=== PATIENT | female | born 1960 | race Caucasian/White ===

== ENCOUNTER 2019-10-07 22:33 | Emergency (ER) | payer OTHER, SELFPAY ==
--- NOTE | ~2019-10-07 | XR_ITS ---
EXAMINATION: XR foot LT min 3V DATE: 10/07/2019 22:51 INDICATION: Left foot pain TECHNIQUE: Dorsoplantar, lateral, and 2 oblique views of the left foot were obtained. COMPARISON: None. FINDINGS: There is a thin linear osseous density projecting lateral to the calcaneus. Mild osteoarthr itis is noted at the first metatarsophalangeal joint. The soft tissues are unremarkable. IMPRESSION: 1. Possible avulsion injury of the lateral aspect of the calcaneus. Reviewed, dictated and finalized at location A.
--- NOTE | ~2019-10-07 | XR_ITS ---
EXAMINATION: XR ankle LT min 3V DATE: 10/07/2019 22:51 INDICATION: Left foot pain TECHNIQUE: Anteroposterior, lateral, mortise, and additional oblique view of the ankle were obtained. COMPARISON: None. FINDINGS: There is a thin linear osseous density projecting lateral to the calcaneus. Bone alignment at the ankle is normal. The soft tissues are unremarkable. IMPRESSION: 1. Possible avulsion injury at the lateral aspect of the calcaneus. Reviewed, dictated and finalized at location A.
[2019-10-07 22:38] VITALS: BP 139/46; PULSE 91; RESP 19; TEMP 36.4; O2SAT 100
--- NOTE | 2019-10-07 22:38 | ED.LOWEXIN ---
HPI - Extremity Injury (Lower) General Chief Complaint: Extremity Injury, Lower Stated Complaint: L ankle pain Time Seen by Provider: 10/07/19 22:37 History of Present Illness HPI Narrative: Pain to the left foot and ankle. Pain began after she slipped and fell down a few stairs landing on top of her left foot. She has pain throughout the midfoot and ankle bilaterally. She has noted mild swelling and decreased ROM through the toes. No wound. No previous injury. Related Data Allergies Allergy/AdvReac Type Severity Reaction Status Date / Time Penicillins Allergy Verified 02/10/12 17:46 Review of Systems Review of Systems: All systems reviewed & are unremarkable except as noted in HPI and below Neurologic: Denies numbness and Reports weakness PMFSH Social History Social History Gender identity (if verbalized by the patient): Female Exam Const: General: healthy appearing, no acute distress and alert Orientation/consciousness: patient oriented x3 HENMT: Head: normal to inspection Resp: Effort & Inspection: normal respiratory effort Cardio: Other: 2+ left DP and PT pulses Skin: General skin exam: normal color Wounds: no wounds Neuro: General: patient oriented x3 and moves all extremities Other: Limited toe flexion, appears to be pain related as she has good strength to resist Extrem: Other: Mild swelling through midfoot Course Vital Signs Vital signs: Vital Signs Temperature 36.4 C 10/07/19 22:38 Pulse Rate 91 10/07/19 22:38 Respiratory Rate 19 10/07/19 22:38 Blood Pressure 139/46 L 10/07/19 22:38 Pulse Oximetry 100 10/07/19 22:38 Temperature 36.4 C 10/07/19 22:38 Pulse Rate 91 10/07/19 22:38 Respiratory Rate 19 10/07/19 22:38 Blood Pressure 139/46 L 10/07/19 22:38 Pulse Oximetry 100 10/07/19 22:38 MDM - Extremity Injury (Lower) MDM Narrative Medical decision making narrative: Possible avulsion of calcaneus on x-ray. I will apply splint and have her follow-up with ortho. Discharge Plan Discharge Clinical Impression: Avulsion fracture of calcaneus Qualifiers: Encounter type: initial encounter Calcaneus location: tuberosity Fracture type: closed Fracture alignment: nondisplaced Laterality: left Qualified Code(s): S92.035A - Nondisplaced avulsion fracture of tuberosity of left calcaneus, initial encounter for closed fracture Patient Disposition: Home, Self-Care Condition: Stable Instructions: Crutch Instructions (ED), Foot Fracture in Adults (ED) Prescriptions: New hydrocodone-acetaminophen [[place]] 5-325 mg tablet 1 tablet PO Q6H PRN (Reason: pain) Qty: 10 RF: 0 Follow-up/Referrals: Basil Bo MD [Physician] - 3 Days PHYSICIAN NOT ON STAFF,NONSTAFF [Primary Care Provider] - Discharge Date/Time: 10/07/19 23:57
== END 2019-10-07 23:57 | disposition home or self-care (01) ==
PROVIDERS: Emergency Provider Emergency Medicine
DX: S92.035A Nondisplaced avulsion fracture of tuberosity of left calcaneus, initial encounter for closed fracture (principal); W10.9XXA Fall (on) (from) unspecified stairs and steps, initial encounter
CPT/HCPCS: 29515; 73610; 73630; 99284; A9270

== ENCOUNTER 2020-04-03 11:39 | Emergency (ER) | payer OTHER, SELFPAY ==
--- NOTE | ~2020-04-03 | XR_ITS ---
EXAMINATION: XR shoulder RT min 2V, XR humerus RT EXAM DATE: 04/03/2020 12:32 (accession [id number]), 04/03/2020 12:31 (accession [id number]) INDICATION: Fell backwards, down stairs on 03/30/2020. Limited range of motion shoulder and right hum eral pain. Initial encounter. TECHNIQUE: The following right shoulder projections obtained: frontal projection with internal rotati on, frontal projection with external rotation, Grashey, and scapular Y view (4+ views). Orthogonal pr ojections right humerus. There are no prior studies for comparison. Comparison is made to prior exami nation from 03/25/2016. FINDINGS: There is acute closed posttraumatic essentially nondisplaced fracture of the right humeral head greater tuberosity. This finding has been indicated, marked on the examination for review, clini leann correlation. . No dislocation. Humeral shaft unremarkable. IMPRESSION: Acute essentially nondisplaced right greater tuberosity fracture. Reviewed, dictated and finalized at location A. CTOR OF APPLICATION DEVELOPMENT IMPRESSION: Acute essentially nondisplaced right greater tuberosity fracture.
[2020-04-03 11:52] VITALS: BP 128/59; PULSE 75; RESP 14; TEMP 36.8; O2SAT 97
--- NOTE | 2020-04-03 12:08 | ED.GENADULT ---
HPI - General Adult General Chief complaint: Extremity Injury, Upper Stated complaint: right arm injury Time Seen by Provider: 04/03/20 12:08 Source: patient Mode of arrival: ambulatory Limitations: no limitations History of Present Illness HPI narrative: 59-year-old female patient presents to the [facility] with complaints of right upper arm pain for the past 4 days. Patient states that she slipped down her stairs while holding the rail with her right hand about 4 days ago and states that when she fell her right arm pulled and twisted and ended up behind her. Patient states that she noticed some bruising to the right upper arm and has not been able to use the right upper arm without extreme pain. Patient states she has been taking Advil for her pain. Patient states at times she does feel what she describes as shock down the lower arm and hand. Related Data Home Medications Medication Instructions Recorded Confirmed acetaminophen 325 mg capsule 325 mg PO Q6H PRN 10/12/19 04/03/20 naproxen sodium 220 mg capsule 220 mg PO Q8H 10/12/19 04/03/20 Allergies Allergy/AdvReac Type Severity Reaction Status Date / Time Penicillins Allergy Unknown Swelling Verified 10/12/19 11:12 of Lip/Tongue/Throat Review of Systems Review of Systems: Narrative: CONSTITUTIONAL: Denies fever, chills, or sweats. EYES: Denies visual changes, redness, or discharge. ENT: Denies rhinorrhea, congestion, sore throat, or otalgia. CARDIOVASCULAR: Denies chest pain, palpitations, or edema. RESPIRATORY: Denies cough or dyspnea. GASTROINTESTINAL: Denies abdominal pain, nausea, vomiting, or diarrhea. GENITOURINARY: Denies dysuria or hematuria. SKIN: Denies rash or itching. MUSCULOSKELETAL: Denies back pain, joint pain, or myalgia. Positive right upper arm pain x4 days NEUROLOGIC: Denies headache, numbness, or weakness. PSYCHIATRIC: Denies anxiety or depression. 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 Gender identity (if verbalized by the patient): Female Comments At the time of my signature I agree with nursing past medical history, surgical, social, and family history. There is no relevant family history pertinent to the presenting complaint. Exam Narrative: Exam Narrative: GENERAL: Well-appearing, well-nourished, and in no acute distress. HEAD: Normocephalic, atraumatic. EYES: PERRLA and EOMI. ENT: Nares clear, no rhinorrhea or epistaxis. Mucous membranes moist. NECK: Supple. No lymphadenopathy CHEST: Clear to auscultation. No respiratory distress. HEART: Regular rate and rhythm. No murmur heard. Normal peripheral pulses. ABDOMEN: Soft, nontender, nondistended, normal active bowel sounds. EXTREMITIES: Patient has extreme sensitivity to palpation of the right humerus. Patient does have some bruising noted over the medial side of the right humerus more distally. No tenderness to the right elbow on palpation. Slight tenderness to the right shoulder does not tolerate movement and is guarding the right upper arm. Patient does have good range of motion and denies any pain to the hand, wrist or the radial or ulnar. Patient is vascularly intact and pulses intact 2+ to the radius SKIN: Warm, dry, no rash. NEURO: No focal deficits. Alert and oriented x3. Course Reevaluation(s) Reevaluation #1: Reevaluated patient after her x-ray resulted. Discussed with her that it appears to be that the greater tuberosity of the humerus bone is fractured. Discussed with her we are to put her in a shoulder immobilizer and have her follow-up with the orthopedic surgeon on-call, Dr. Okeefe.
== END 2020-04-03 13:01 | disposition home or self-care (01) ==
PROVIDERS: Emergency Provider Nurse Practitioner Family; PCP Internal Medicine
DX: S42.254A Nondisplaced fracture of greater tuberosity of right humerus, initial encounter for closed fracture (principal); W10.9XXA Fall (on) (from) unspecified stairs and steps, initial encounter
CPT/HCPCS: 73030; 73060; 99214; G0463

== ENCOUNTER → 2020-06-02 13:49 | Outpatient (CLI) | payer OTHER, SELFPAY ==
--- NOTE | ~2020-06-02 | MR_ITS ---
EXAMINATION: MR shoulder RT wo con DATE: 06/02/2020 14:50 INDICATION: Right shoulder pain. TECHNIQUE: Magnetic resonance imaging (MRI) of the right shoulder was performed without intravenous c ontrast. Sequences included axial PD-weighted FS FSE, coronal oblique PD-weighted FS FSE and T2-weigh vickie FS FSE, and sagittal oblique T2-weighted FS FSE and T1-weighted FSE. COMPARISON: Right shoulder radiographs 05/22/2020 FINDINGS: Coracoacromial arch: The acromion undersurface is flat in morphology (type I). There is mild acromioclavicular joint osteo arthritis. There is mild subacromial/subdeltoid bursitis. Rotator cuff: There is an avulsion fracture of greater tuberosity of proximal humerus with up to 4 mm displacement. There is severe supraspinatus tendinopathy and mild infraspinatus tendinopathy. Teres minor tendon i s normal. Subscapularis tendon is normal. There is no asymmetric fatty atrophy of the rotator cuff mu scle bellies. Biceps tendon and glenoid labrum: Biceps tendon is in bicipital groove. Intra-articular biceps tendon is normal. The glenoid labrum is normal. Fluid: There is a small glenohumeral joint effusion. Bones/cartilage: The glenoid cartilage is normal. Humeral head cartilage is normal. IMPRESSION: 1. Avulsion fracture of greater tuberosity of proximal humerus. 2. Severe rotator cuff tendinopathy. No tear. 3. Small glenohumeral joint effusion. 4. Mild subacromial/subdeltoid bursitis. 5. Mild acromioclavicular joint osteoarthritis. Reviewed, dictated and finalized at location A. ER PLANTER
== END ==
PROVIDERS: PCP Internal Medicine; Visit Provider Orthopaedic Surgery
DX: S42.91XA Fracture of right shoulder girdle, part unspecified, initial encounter for closed fracture (principal); M75.51 Bursitis of right shoulder; M19.011 Primary osteoarthritis, right shoulder
CPT/HCPCS: 73221

== ENCOUNTER → 2020-06-02 13:50 | Outpatient (CLI) | payer OTHER, SELFPAY ==
--- NOTE | ~2020-06-02 | DEXA_ITS ---
Bone Density Report Name: Savanna Martínez Age: 59 Sex: Female Ethnicity: White Date of : 1960 Indication: postmenopausal; screening for osteoporosis; prior fracture; Referring Provider: Marcie Candelario Study: Bone densitometry was performed. Exam Date: June 02, 2020 Accession number: [id number] Bone Density: Region BMD T-score Z-score Classification AP Spine (L1-L4) 0.829 -2.0 -0.5 Osteopenia Femoral Neck (Left) 0.568 -2.5 -1.2 Osteoporosis Total Hip (Left) 0.701 -2.0 -1.0 Osteopenia Femoral Neck (Right) 0.537 -2.8 -1.5 Osteoporosis Total Hip (Right) 0.723 -1.8 -0.8 Osteopenia Total Hip Mean 0.712 -1.9 -0.9 Osteopenia World Health Organization criteria for BMD impression classify patients as: Normal (T-score at or above -1.0), Osteopenia (T-score between -1.0 and -2.5), or Osteoporosis (T-score at or below -2.5). 10-year Fracture Risk: FRAX not reported because: Some T-score for Spine Total or Hip Total or Femoral Neck at or below -2.5 Clinical Information Provided by Patient: Has had a low trauma fracture Has used the following medications: Vitamin D Patient maximum height was 63.9 Menopause Age: 49 Does not regularly consume dairy products Drinks caffeinated beverages Onset of menses at age 14 Number of children 2 Impression: The patient has established osteoporosis, based on the Right Femoral Neck T-score and the existence of a prior fracture. The patient has risk factors, including: previous fracture. Discussion: HIGH RISK OF FRACTURE. BONE DENSITY IS UNDESIRABLY LOW AT ONE OR MORE SKELETAL SITES, CONSISTENT WITH POSTMENOPAUSAL OSTEOPOROSIS. This patient's lowest T-score, in a patient who has previously fractured, meets the World Health Organization's (WHO) criteria for severe osteoporosis. In untreated patients, the risk of osteoporotic fracture increases approximately two-fold for each 1.0 SD decrease in T-score. Low bone density is not the only risk factor for fracture; also consider factors such as patient's age, frailty or poor health, risk of falling, risk of injury, previous osteoporotic fracture, family history of osteoporosis, cigarette smoking, low body weight, etc. Not everyone with low bone mineral density has osteoporosis; osteomalacia and other metabolic bone disorders should also be considered. Patients who have osteoporosis should be evaluated for specific diseases and conditions (secondary causes) that may cause or contribute to bone loss. The [place] Association of Clinical Endocrinologists (AACE) and National Osteoporosis Foundation (NOF) recommend pharmacologic intervention for all postmenopausal women whose T-score is in this range. The patient should follow a healthful lifestyle (good nutrition with adequate calcium and vitamin D, and appropriate weight-bearing exercise).
--- NOTE | ~2020-06-02 | MM_ITS ---
EXAMINATION: MM screening alberto BI w bella HISTORY: Screening TECHNIQUE: Craniocaudal and mediolateral oblique 3-D tomosynthesis images were obtained and synthetic 2-D images were generated. CAD analysis was submitted and interpreted. COMPARISON: 08/21/2015 BREAST PARENCHYMAL COMPOSITION: The breasts are heterogeneously dense, which may obscure small masses . FINDINGS: There are new asymmetries in the upper outer quadrant of the left breast. The right breast is stable without evidence for malignancy. IMPRESSION: 1. New left breast asymmetries. 2. Additional mammographic views and possible breast ultrasound are recommended. BI-RADS Category 0: Incomplete: Needs additional imaging evaluation. Reviewed, dictated and finalized at location A. E MAN IMPRESSION: 1. New left breast asymmetries. 2. Additional mammographic views and possible breast ultrasound are recommended . BI-RADS Category 0: Incomplete: Needs additional imaging evaluation.
== END ==
PROVIDERS: PCP Internal Medicine; Visit Provider Clinical Nurse Specialist
DX: Z12.31 Encounter for screening mammogram for malignant neoplasm of breast (principal); Z13.820 Encounter for screening for osteoporosis; R92.8 Other abnormal and inconclusive findings on diagnostic imaging of breast; M81.0 Age-related osteoporosis without current pathological fracture; M85.852 Other specified disorders of bone density and structure, left thigh; M85.851 Other specified disorders of bone density and structure, right thigh
CPT/HCPCS: 77063; 77067; 77080

== ENCOUNTER → 2020-06-23 08:47 | Outpatient (CLI) | payer OTHER, SELFPAY ==
--- NOTE | ~2020-06-23 | MMUS_ITS ---
EXAMINATION: MM diagnostic mammo unilat LT, US breast LT limited HISTORY: Left breast asymmetry on screening mammogram TECHNIQUE: Additional 3-D tomosynthesis images of the left breast were performed and synthetic 2-D im ages were generated. CAD analysis was submitted and interpreted. High resolution limited left breast ultrasound was performed. COMPARISON: 06/02/2020, 08/21/2015 FINDINGS: MAMMOGRAPHIC FINDINGS: There is a return to baseline fibroglandular appearance with spot compression of the left breast in t he area questioned on screening mammogram. No suspicious mass, calcification, or architectural distor tion are identified. ULTRASOUND: There is no evidence of focal abnormal solid or cystic lesion in the vicinity of the mammographic fin ding in question. IMPRESSION: 1. No mammographic or sonographic evidence of malignancy. 2. Recommend routine screening mammography in one year. BI-RADS Category 1: Negative Reviewed, dictated and finalized at location A. ERY SPECIALIST IMPRESSION: 1. No mammographic or sonographic evidence of malignancy. 2. Recommend routine screening mammography in one year. BI-RADS Category 1: Negative
== END ==
PROVIDERS: PCP Internal Medicine; Visit Provider Clinical Nurse Specialist
DX: R92.8 Other abnormal and inconclusive findings on diagnostic imaging of breast (principal)
CPT/HCPCS: 76642; 77065

== ENCOUNTER 2021-02-19 12:08 | Outpatient (CLI) | payer OTHER, SELFPAY ==
--- NOTE | ~2021-02-19 | CT_ITS ---
EXAMINATION: CT abdomen pelvis wo con DATE: 02/19/2021 12:28 INDICATION: Right flank pain, hematuria TECHNIQUE: Computed tomography (CT) of the abdomen and pelvis was performed without intravenous contr ast. Automated exposure control and iterative reconstruction technique were employed. Exam dose: 175 .65 mGy-cm total exam DLP. COMPARISON: None. FINDINGS: There is mild patchy groundglass infiltrate in the right lower lobe. There is a right lower lobe calcified pulmonary granuloma. Normal heart size. No pericardial or pleural effusion. The gallbladder is contracted, not optimally evaluated. Ultrasound would be more helpful for gallblad angelita evaluation as clinically appropriate. No hepatic space-occupying mass lesion or bile duct dilatation. Normal splenic size. Benign approxima tely 6 mm splenic calcification. No pancreatic mass lesion or calcification or pancreatic duct dilata tion is evident. Normal morphology of the adrenal glands. There is mild perinephric soft tissue stranding and mild prominence of the anterior and posterior par arenal and lateroconal fascia on the right. There is right periureteral fluid. No definite urinary tr act calculus is noted. Consider right pyelonephritis or possibly recently passed right urinary tract stone. No stone is noted in the urinary bladder. 2.2 cm left ovarian cyst. The uterus and adnexal areas are otherwise unremarkable. Mild free fluid co llection in the cul-de-sac. The urinary bladder is unremarkable. No bowel obstruction, bowel wall thickening, pneumatosis or intraperitoneal free air is detected. Included skeletal structures are unremarkable. IMPRESSION: Mild right perinephric and periureteral fluid/stranding, possibly secondary to pyeloneph ritis or recently passed stone. 2.2 cm left ovarian cyst Patchy groundglass infiltrate in right lower lobe Reviewed, dictated and finalized at Location A. Reviewed, dictated and finalized at location A. IMPRESSION: Mild right perinephric and periureteral fluid/stranding, possibly secondary to pyelonephritis or recently passed stone. 2.2 cm left ovarian cyst Patchy groundglass infiltrate in right lower lobe
== END 2021-02-19 12:09 | disposition home or self-care (01) ==
LOC: ANHIMG 12:11
PROVIDERS: PCP Internal Medicine; Visit Provider Clinical Nurse Specialist
DX: R31.9 Hematuria, unspecified (principal); R10.823 Right lower quadrant rebound abdominal tenderness; N83.201 Unspecified ovarian cyst, right side; R91.8 Other nonspecific abnormal finding of lung field
CPT/HCPCS: 74176

== ENCOUNTER 2022-11-06 14:16 | Outpatient (CLI) | payer OTHER, SELFPAY ==
[2022-11-06 16:15] LABS: Kit Draw Collected
== END 2022-11-06 14:17 | disposition home or self-care (01) ==
LOC: ANHGOSHLAB 14:18
PROVIDERS: PCP Internal Medicine; Visit Provider Clinical Nurse Specialist
DX: E03.9 Hypothyroidism, unspecified (principal); Z13.220 Encounter for screening for lipoid disorders; Z13.228 Encounter for screening for other metabolic disorders
CPT/HCPCS: 36415

== ENCOUNTER 2024-11-15 09:26 | Emergency (ER) | payer OTHER, SELFPAY ==
--- NOTE | ~2024-11-15 | CT_ITS ---
EXAMINATION: CT lumbar spine wo con DATE: 11/15/2024 12:18 INDICATION: Low back pain with radicular symptoms TECHNIQUE: Computed tomography (CT) of the lumbar spine was performed without intravenous contrast. A utomated exposure control and iterative reconstruction technique were employed. The dose-length produ ct was 186.69 mGy-cm. COMPARISON: None FINDINGS: Alignment is normal. Vertebral body and disc heights are normal. Paravertebral soft tissues are unremarkable. 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 The following disc levels are specifically discussed: T11-T12 through L1-L2: There is mild bilateral facet joint osteoarthritis. There is no neural foramin al stenosis. There is no central canal stenosis. L2-L3: Disc is mildly bulging. There is mild to moderate bilateral facet joint osteoarthritis. There is mild bilateral neural foraminal stenosis. There is mild central canal stenosis. L3-L4: Disc is bulging. There is moderate right and mild to moderate left facet joint osteoarthritis. There is mild bilateral neural foraminal stenosis. There is mild central canal stenosis. L4-L5: Disc is bulging. There is moderate left and moderate to severe right facet joint osteoarthriti s. There is mild bilateral neural foraminal stenosis. There is mild central canal stenosis. L5-S1: Disc is bulging. There is mild bilateral facet joint osteoarthritis. There is normal bilateral neural foraminal stenosis. There is no central canal stenosis. IMPRESSION: 1. Mild lumbar spondylosis. Reviewed, dictated and finalized at location B. IMPRESSION: 1. Mild lumbar spondylosis.
[2024-11-15 09:32] VITALS: BP 142/51; PULSE 70; RESP 18; TEMP 36.6; O2SAT 100
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
--- OUTSIDE RECORDS SUMMARY | 2024-11-15 12:12 | XMS_ITS | Referral Summary ---
Author Organization [facility] Address [address] [place] [address] Care Team Providers Care Assembly Supervisor Name Role Phone Ankush Medina DO Primary Care Provider [phone] Allergies Active Allergy Reactions Criticality Noted Date Comments Penicillin G Benzathin,Procain Rash Medium 07/07 Medications levothyroxine sodium (TIROSINT) 100 mcg capsule TAKE 1 CAPSULE EVERY DAY BY ORAL ROUTE IN THE MORNING FOR 30 DAYS. 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 07/07/2020 Overview (07/07/2020): Treated for 16 weeks by another doctor Disorder of sacrum 07/07/2020 Social History Tobacco Use Types Packs/Day Years Used Date Smoking Tobacco: Never Smokeless Tobacco: Never Personal Safety Answer Date Recorded Getting School Help Needed Not on file 08/01 Comments Unknown Sex and Gender Information Value Date Recorded Sex Assigned at Not on file Legal Sex Female 4:06 PM [employer] Gender Identity Not on file Sexual Orientation Not on file Last Filed Vital Signs Vital Sign Reading Time Taken Comments Blood Pressure 118/72 10/12/2020 8:31 AM CDT Pulse 77 10/12/2020 8:31 AM CDT Temperature 36.6 C (97.9 F) 08/10/2020 10:46 AM CDT Respiratory Rate - - Oxygen Saturation - - Inhaled Oxygen Concentration - - Weight 55.3 kg (122 lb) 10/12/2020 8:31 AM CDT Height 162.6 cm (5' 4) 10/12/2020 8:31 AM CDT Body Mass Index 20.94 10/12/2020 8:31 AM CDT Plan of Treatment Not on file Insurance [employer] Care Teams Assembly Supervisor Relationship Specialty Start Date End Date Ankush Medina DO PCP - General Internal Medicine 06/12/20
--- OUTSIDE RECORDS SUMMARY | 2024-11-15 12:12 | XMS_ITS | Clinical Summary ---
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 Name Role Phone Unavailable Primary Care Provider Unavailabl e Social History Tobacco Use Types Packs/Day Years Used Date Smoking Tobacco: Never Assessed Comments Unknown Sex and Gender Information Value Date Recorded Sex Assigned at Not on file Legal Sex Female 5:10 PM CDT Gender Identity Not on file Sexual Orientation Not on file Plan of Treatment Health Maintenance Due Date Last Done Comments Colorectal Cancer Screening Colonoscopy (10 Years) 1959 Hepatitis C 1977 DTaP, Tdap and Td Vaccines ( 1 - Tdap) 1978 Mammogram Screening 1999 Pneumococcal Vaccine: 50+ Ye ars (1 of 1 - PCV) 2009 Zoster Vaccines (1 of 2) 2009 COVID-19 Vaccine ( - 2023-2 5 season) 2024 Dexa Scan (General) 2024 RSV Immunization or 60+ Years (1 - 1-dose 75+ series) 2034 Meningococcal B Vaccine Aged Out No l onger eligible based on patient's age to complete this topic Meningococcal Vaccine Aged Out No lionel nabil eligible based on patient's age to complete this topic RSV Immunizations Under 20 Months Aged Out No longer eligible based on patient's age to complete this topic
--- OUTSIDE RECORDS SUMMARY | 2024-11-15 12:12 | XMS_ITS | Clinical Summary ---
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
[2024-11-15] MEDS: ONDANSETRON INJ 4 MG/2 ML VIAL IV PUSH (12:29)
[2024-11-15] MEDS: fentaNYL CITRATE INJ (*CRX) 100 MCG/2 ML VIAL 50 MCG IV PUSH (12:30)
[2024-11-15 14:09] VITALS: BP 121/74; PULSE 72; RESP 18; O2SAT 98
== END 2024-11-15 14:04 | disposition home or self-care (01) ==
PROVIDERS: Emergency Provider Emergency Medicine; PCP Internal Medicine
DX: M54.50 Low back pain, unspecified (principal)
CPT/HCPCS: 72131; 96374; 96375; 99284; J2405; J3010